=== PATIENT | female | born 1990 ===

== ENCOUNTER 2016-05-17 10:42 | Emergency (ER) | payer OTHER ==
[2016-05-17 11:15] VITALS: TEMP 98
[2016-05-17] MEDS ORDERED: Sodium Chloride 0.9% 1,000 ML IV STA (12:56)
[2016-05-17] MEDS ORDERED: DiphenhydrAMINE 50 mg/ml Inj ONE (14:04)
--- NOTE | 2016-05-17 14:07 | ED PDOC ---
HPI: Headache Time Seen by Provider: 05/17/16 12:30 Chief Complaint (Nursing): Headache Chief Complaint (Provider): headache History Per: Patient History/Exam Limitations: no limitations Onset/Duration Of Symptoms: Days (3) Current Symptoms Are (Timing): Still Present Severity: Moderate Pain Scale Rating Of: 5 (not relieved with motrin or tylenol) Front/Back Head: 1 - with asosciated: nasuea, photophobia, neck pain Quality: Aching Preceeding Symptoms: Visual Disturbances, Known Migraine Symptoms Associated Symptoms: Photophobia, Blurred Vision, Nausea. denies: Vomiting, Extremity Weakness - Risk Factors SAH Risk Factors: Nest Degree Relative(s) W/SAH, Polycystic Kidney Disease, Marfan's Syndrome, [place]-Danlos Syndrome, Neurofibromatos, Type I, Sudden Onset Of Pain , Worst Headache Of Life Past Medical History Reviewed: Historical Data, Nursing Documentation, Vital Signs Vital Signs: Last Vital Signs Temp 98 F 05/17/16 11:13 Pulse 58 L 05/17/16 11:13 Resp 19 05/17/16 11:13 BP 118/79 05/17/16 11:13 Pulse Ox 100 05/17/16 11:13 - Medical History PMH: Migraine - Family History Family History: States: No Known Family Hx - Home Medications Home Medications: Ambulatory Orders Medication Instructions Recorded SUMAtriptan succinate [Imitrex Tab] 100 mg PO TID PRN #20 tab 05/17/16 - Allergies Allergies/Adverse Reactions: Allergies Allergy/AdvReac Type Severity Reaction Status Date / Time No Known Allergies Allergy Verified 05/17/16 12:56 Review of Systems ROS Statement: Except As Marked, All Systems Reviewed And Found Negative Neurological: Positive for: Headache. Negative for: Weakness, Numbness, Incoordination, Change in Speech, Confusion, Seizures, Altered Mental Status, Dizziness Physical Exam - Reviewed Nursing Documentation Reviewed: Yes Vital Signs Reviewed: Yes - Physical Exam Appears: Positive for: Non-toxic, No Acute Distress, Uncomfortable Head Exam: Positive for: ATRAUMATIC, NORMAL INSPECTION, NORMOCEPHALIC Skin: Positive for: Normal Color, Warm, DRY Eye Exam: Positive for: EOMI, Normal appearance, PERRL ENT: Positive for: Normal ENT Inspection Neck: Positive for: Normal, Painless ROM Cardiovascular/Chest: Positive for: Regular Rate, Rhythm Respiratory: Positive for: CNT, Normal Breath Sounds Gastrointestinal/Abdominal: Positive for: Normal Exam, Bowel Sounds, Soft Neurologic/Psych: Positive for: 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 Negative for: Motor/Sensory Deficits - ECG O2 Sat by Pulse Oximetry: 100 - Progress ED Course And Treament: pt given IV fluids, benadrly, reglan torodol for migraine relief. Medical Decision Making Medical Decision Making: pt improved in ED no longer with [facility]INI advised to have nuerology f.u or pmd f.u d./c with Rx with sumaptran imitrex stable i ED at this time doesnt require further medical eval. however advised if with neuro deficts to come to ED for further evaluation. Disposition - Clinical Impression Clinical Impression: Headache - Patient ED Disposition Is Patient to be Admitted: No Counseled Patient/Family Regarding: Diagnosis, Need For Followup, Rx Given, Smoking Cessation - Disposition Referrals: [facility] [Provider Group] [facility] [Provider Group] Disposition: Routine/Home Disposition Time: 14:12 Condition: IMPROVED Prescriptions: SUMAtriptan succinate [Imitrex Tab] 100 mg PO TID PRN #20 tab PRN Reason: Headache Instructions: Migraine Headache (ED)
[2016-05-17] MEDS: DiphenhydrAMINE 50 mg/ml Inj IVP STA ×2 (14:45→14:48)
[2016-05-17 19:59] VITALS: BP 100/62; PULSE 66; RESP 16; O2SAT 99
== END 2016-05-17 15:40 | disposition home or self-care (01) ==
LOC: H.ER 10:42
DX: R51 Headache (principal); H53.149 Visual discomfort, unspecified; M54.2 Cervicalgia

== ENCOUNTER 2017-03-23 14:56 | Emergency (ER) | payer OTHER ==
[2017-03-23 15:44] VITALS: BP 116/78; PULSE 75; RESP 16; TEMP 98.2; O2SAT 100
--- NOTE | 2017-03-23 17:04 | ED PDOC ---
Upper Extremity Pain/Injury Time Seen by Provider: 03/23/17 16:58 Chief Complaint (Nursing): Upper Extremity Problem/Injury Chief Complaint (Provider): left shoulder pain History Per: Patient, Family ( at bedside is translating for patient in irish) History/Exam Limitations: no limitations Onset/Duration Of Symptoms: Days (x1) Current Symptoms Are (Timing): Still Present Additional Complaint(s): 26-year-old female presents complaining of left shoulder pain radiating to the upper back, onset earlier today. Patient denies any injury or trauma. She was advised by coworkers to come to the ER for evaluation. No chest pain or shortness of breath. No meds taken for pain relief prior to arrival. PMD: none Past Medical History Reviewed: Historical Data, Nursing Documentation, Vital Signs Vital Signs: Last Vital Signs Temp 98.2 F 03/23/17 15:43 Pulse 75 03/23/17 15:43 Resp 16 03/23/17 15:43 BP 116/78 03/23/17 15:43 Pulse Ox 100 03/23/17 15:43 - Medical History PMH: Migraine - Family History Family History: States: No Known Family Hx - Living Arrangements Living Arrangements: With Family - Social History Current smoker - smoking cessation education provided: No Alcohol: None Drugs: Denies - Home Medications Home Medications: Ambulatory Orders Medication Instructions Recorded SUMAtriptan succinate [Imitrex Tab] 100 mg PO TID PRN #20 tab 05/17/16 Ibuprofen [Motrin] 600 mg PO Q6 PRN #15 tab 03/23/17 - Allergies Allergies/Adverse Reactions: Allergies Allergy/AdvReac Type Severity Reaction Status Date / Time No Known Allergies Allergy Verified 05/17/16 12:56 Review of Systems ROS Statement: Except As Marked, All Systems Reviewed And Found Negative Cardiovascular: Negative for: Chest Pain Respiratory: Negative for: Shortness of Breath Musculoskeletal: Positive for: Shoulder Pain (left shoulder pain radiating to upper back) Physical Exam - Reviewed Nursing Documentation Reviewed: Yes Vital Signs Reviewed: Yes - Physical Exam Appears: Positive for: Well, Non-toxic, No Acute Distress Head Exam: Positive for: ATRAUMATIC, NORMAL INSPECTION, NORMOCEPHALIC Skin: Positive for: Normal Color. Negative for: Rash Eye Exam: Positive for: Normal appearance Cardiovascular/Chest: Positive for: Regular Rate, Rhythm Respiratory: Positive for: Normal Breath Sounds. 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 Negative for: Deformity Neurologic/Psych: Positive for: Alert, Oriented - Laboratory Results Urine POC: Negative - ECG Interpretation Of ECG: NSR 60 bpm, no acute finding, reviewed by PA and ED attending O2 Sat by Pulse Oximetry: 100 (RA) Pulse Ox Interpretation: Normal - Other Rad Left shoulder x-ray X-Ray: Interpreted by Me, Viewed By Me X-Ray Interpretation: no fx, no dis, normal study Medical Decision Making Medical Decision Making: Initial Impression: 26-year-old female with left shoulder pain Time: 17:57 Plan: Motrin 600mg PO X-Ray of left shoulder Patient is aware of x-ray results, all questions answered. Patient states she feels better after Motrin dose. Sling was declined. Patient given rx motrin for pain and was referred to clinic for follow up. Scribe Attestation: Documented by Honey Weir, acting as a scribe for Maliha Khalil PA-C Provider Scribe Attestation: All medical record entries made by the Scribe were at my direction and personally dictated by me. I have reviewed the chart and agree that the record accurately reflects my personal performance of the history, physical exam, medical decision making, and the department course for this patient. I have also personally directed, reviewed, and agree with the discharge instructions and disposition. Disposition - Clinical Impression Clinical Impression: Shoulder pain - Patient ED Disposition Is Patient to be Admitted: No Counseled Patient/Family Regarding: Studies Performed, Diagnosis, Need For Followup, Rx Given - Disposition Referrals: [facility] [Outside] Disposition: Routine/Home Disposition Time: 18:17 Condition: STABLE Additional Instructions: Take rx meds as directed as needed for pain. Follow up in 2-3 days with clinic. Prescriptions: Ibuprofen [Motrin] 600 mg PO Q6 PRN #15 tab PRN Reason: Pain, Moderate (4-7) Instructions: Shoulder Sprain (ED) Forms: [facility] ([employer]) Print Language: CHINESE
--- NOTE | 2017-03-23 18:34 | RAD ---
PROCEDURE: Radiographs of the Left Shoulder HISTORY: pain COMPARISON: No prior. FINDINGS: BONES: Normal. No fracture. JOINTS: Normal. Glenohumeral and acromioclavicular joints preserved. No osteoarthritis. SOFT TISSUES: Normal. OTHER FINDINGS: None. IMPRESSION: Normal radiographs of the left shoulder.
== END 2017-03-23 18:58 | disposition home or self-care (01) ==
LOC: H.ER 14:56
DX: M25.512 Pain in left shoulder (principal)

== ENCOUNTER 2017-11-23 22:40 | Emergency (ER) | payer OTHER ==
[2017-11-23 23:01] VITALS: BP 121/77; PULSE 76; RESP 16; TEMP 98.7
[2017-11-23 23:27] VITALS: O2SAT 76
--- NOTE | 2017-11-23 23:27 | ED PDOC ---
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 Patient states pain radiates down to elbow, with associated numbness/tingling from forearm to fingers. Patient reports states she was seen in ED for shoulder pain earlier this year and had an xray, which was similar pain to now, and states she also had an episode of numbness/tingling a few weeks ago with the pain. Denies headache, dizziness, vision changes, extremity weakness, chest pain, shortness of breath, palpitations, swelling of extremities, recent travel. Past Medical History Reviewed: Historical Data, Nursing Documentation, Vital Signs Vital Signs: Last Vital Signs Temp 98.7 F 11/23/17 22:56 Pulse 76 11/23/17 22:56 Resp 16 11/23/17 22:56 BP 121/77 11/23/17 22:56 Pulse Ox 76 L 11/23/17 22:56 - Medical History PMH: Migraine - Surgical History Surgical History: - Family History Family History: States: Unknown Family Hx - Living Arrangements Living Arrangements: With Family - Social History Current smoker - smoking cessation education provided: No Alcohol: None Drugs: Denies - Home Medications Home Medications: Ambulatory Orders Medication Instructions Recorded SUMAtriptan succinate [Imitrex Tab] 100 mg PO TID PRN #20 tab 05/17/16 Ibuprofen [Motrin] 600 mg PO Q6 PRN #15 tab 03/23/17 Naproxen [Naprosyn] 500 mg PO Q12 PRN #20 tablet 11/24/17 - Allergies Allergies/Adverse Reactions: Allergies Allergy/AdvReac Type Severity Reaction Status Date / Time No Known Allergies Allergy Verified 11/23/17 22:56 Review of Systems ROS Statement: Except As Marked, All Systems Reviewed And Found Negative Musculoskeletal: Positive for: Shoulder Pain (left) Neurological: Positive for: Numbness (LUE) Physical Exam - Reviewed Nursing Documentation Reviewed: Yes Vital Signs Reviewed: Yes - Physical Exam Appears: Positive for: Well, Non-toxic, No Acute Distress Head Exam: Positive for: ATRAUMATIC, NORMAL INSPECTION, NORMOCEPHALIC Skin: Positive for: Normal Color Eye Exam: Positive for: Normal appearance ENT: Positive for: Normal ENT Inspection Cardiovascular/Chest: Positive for: Regular Rate, Rhythm Respiratory: Positive for: Normal Breath Sounds Gastrointestinal/Abdominal: Positive for: Normal Exam Back: Positive for: Normal Inspection Extremity: Positive for: Normal ROM, Tenderness (tender to palpate left anterior and posterior shoulder without swelling, deformity. 5/5 strength b/l UE), Capillary Refill (<2 sec b/l UE) Neurologic/Psych: Positive for: Alert, Oriented - ECG O2 Sat by Pulse Oximetry: 76 - Progress ED Course And Treament: Toradol IM On re-eval, patient states she is feeling better, symptoms improving Patient educated on findings, discharged with instructions to follow up neurology Rx Naproxen provided Return precautions given Disposition - Clinical Impression Clinical Impression: Paresthesia and pain of left extremity - Patient ED Disposition Is Patient to be Admitted: No Counseled Patient/Family Regarding: Diagnosis, Need For Followup, Rx Given - Disposition Referrals: Alfred Rivas MD [Staff Provider] - [facility] [Outside] Disposition: Routine/Home Disposition Time: 01:00 Condition: IMPROVED Prescriptions: Naproxen [Naprosyn] 500 mg PO Q12 PRN #20 tablet PRN Reason: Pain, Moderate (4-7) Instructions: Paresthesias (DC) Print Language: PERSIAN
== END 2017-11-24 01:10 | disposition home or self-care (01) ==
LOC: H.ER 22:40
DX: R20.2 Paresthesia of skin (principal)
CPT/HCPCS: 81025; 96372; 99283; J1885